=== PATIENT | female | born 1950 | race Caucasian/White ===

== ENCOUNTER 2017-06-20 19:15 | Emergency (ER) | payer OTHER, MEDICAID ==
[~2017-06-20] VITALS: Ht 157.5 cm; Wt 45.4 kg
[2017-06-20 19:15] VITALS: BP_SYST 92
[2017-06-20 20:33] LABS: BASOPHILS % (AUTO) 0.3 % (0.0-2.0); EOSINOPHILS # (AUTO) 0.2 K/uL (0.0-0.4); EOSINOPHILS % (AUTO) 1.8 % (0.0-4.0); HEMATOCRIT 45.6 % (36-48); HEMOGLOBIN 14.9 g/dL (12.0-16.0); LYMPHOCYTES % (AUTO) 29.9 % (20.5-51.5); MEAN CORPUSCULAR HEMOGLOBIN 30 pg (27-31); MEAN CORPUSCULAR HGB CONC 33 % (32-36); MEAN CORPUSCULAR VOLUME 93 fL (79.0-98.0); MONOCYTES # (AUTO) 1.1 K/uL (0.0-1.0); MONOCYTES % (AUTO) 8.4 % (1.7-9.3); NEUTROPHILS # (AUTO) 8.2 K/uL (1.8-7.7); NEUTROPHILS % (AUTO) 59.6 % (40.0-70.0); PLATELET COUNT (AUTO) 319 K/uL (130-430); RED BLOOD CELL COUNT(AUTO) 4.89 MIL/uL (4.2-6.2); RED CELL DISTRIBUTION WIDTH 12.5 % (9.0-15.0); WHITE BLOOD COUNT (AUTO) 13.5 K/uL (4.8-10.8)
[2017-06-20 20:46] LABS: CALCIUM 9.4 mg/dL (8.4-11.0); CREATININE 0.73 mg/dL (0.55-1.30); POTASSIUM 3.5 mmol/L (3.5-5.1)
[2017-06-20 20:51] LABS: ALBUMIN 3.3 g/dL (3.4-4.8); TOTAL BILIRUBIN 0.3 mg/dL (0.0-1.0); URIC ACID 2.9 mg/dL (2.4-7.0)
[2017-06-20 21:23] LABS: INR 0.9 (0.8-1.2); PROTHROMBIN TIME 9.5 SECS (9.5-12.5)
[2017-06-20] MEDS ORDERED: IBUPROFEN 800 MG TABLET PO ONE (21:30)
[2017-06-20] MEDS ORDERED: CLINDAMYCIN HCL 150 MG CAPSULE PO ONE (21:30)
[2017-06-20 22:20] VITALS: BP_SYST 107
== END 2017-06-20 22:20 | disposition home or self-care (01) ==
LOC: SED 19:15
DX: M25.562 Pain in left knee (principal); R06.02 Shortness of breath; F17.210 Nicotine dependence, cigarettes, uncomplicated; Z71.6 Tobacco abuse counseling
CPT/HCPCS: 36415; 73564; 80053; 84550-TC; 85025; 85610-TC; 85730-TC; 93971; 99285

== ENCOUNTER 2017-06-24 20:25 | Emergency (ER) | payer OTHER, MEDICAID ==
[~2017-06-24] VITALS: Ht 160 cm; Wt 45.4 kg
[2017-06-24 20:38] VITALS: BP_SYST 116
[2017-06-24 21:45] LABS: BASOPHILS # (AUTO) 0.1 K/uL (0.0-0.2); BASOPHILS % (AUTO) 0.8 % (0.0-2.0); EOSINOPHILS # (AUTO) 0.2 K/uL (0.0-0.4); EOSINOPHILS % (AUTO) 1.9 % (0.0-4.0); HEMATOCRIT 41.6 % (36-48); HEMOGLOBIN 13.8 g/dL (12.0-16.0); LYMPHOCYTES # (AUTO) 3.7 K/uL (1.0-5.5); LYMPHOCYTES % (AUTO) 33.3 % (20.5-51.5); MEAN CORPUSCULAR HEMOGLOBIN 31 pg (27-31); MEAN CORPUSCULAR HGB CONC 33 % (32-36); MEAN CORPUSCULAR VOLUME 92 fL (79.0-98.0); MONOCYTES # (AUTO) 0.7 K/uL (0.0-1.0); MONOCYTES % (AUTO) 6.7 % (1.7-9.3); NEUTROPHILS # (AUTO) 6.3 K/uL (1.8-7.7); NEUTROPHILS % (AUTO) 57.3 % (40.0-70.0); PLATELET COUNT (AUTO) 347 K/uL (130-430); RED CELL DISTRIBUTION WIDTH 12.4 % (9.0-15.0)
[2017-06-24 22:07] LABS: POTASSIUM 3.4 mmol/L (3.5-5.1)
[2017-06-24 22:08] LABS: ALBUMIN 3.3 g/dL (3.4-4.8); CALCIUM 9.4 mg/dL (8.4-11.0); CREATININE 0.91 mg/dL (0.55-1.30); TOTAL BILIRUBIN 0.3 mg/dL (0.0-1.0)
[2017-06-24] MEDS ORDERED: ONDANSETRON 4 MG ODT TAB PO ONE (22:30)
[2017-06-24] MEDS ORDERED: MAG HYDROX/AL HYDROX/SIMETH 30 ML, LIDOCAINE VISCOUS 2% 15ML (PO) 10 ML, BELLADONNA ALK... PO ONE ×3 (22:30)
[2017-06-25 01:00] VITALS: BP_SYST 113
== END 2017-06-25 01:00 | disposition home or self-care (01) ==
LOC: SED 20:25
DX: K29.70 Gastritis, unspecified, without bleeding (principal); F17.200 Nicotine dependence, unspecified, uncomplicated; Z90.49 Acquired absence of other specified parts of digestive tract; Z90.710 Acquired absence of both cervix and uterus
CPT/HCPCS: 36415; 74176; 80053; 83690; 85025; 99285; J2001; Q0162